=== PATIENT | female | born 1990 | race American Indian/Alaskan Native ===

== ENCOUNTER 2018-07-19 22:56 | Emergency (ER) | payer OTHER ==
[2018-07-20] MEDS ORDERED: TYLENOL PO ONE (00:13)
[2018-07-20 04:50] VITALS: BP 110/61
[2018-07-20] MEDS ORDERED: IBUPROFEN PO ONE (05:05)
[2018-07-20 07:09] LABS: Bilirubin,Urine NEG (Negative); Blood,Urine NEG (Negative); Color,Urine Yellow (Yellow); Mucus,Urine FEW /HPF; Protein,Urine <15 mg/dL mg/dL (Negative); Urobilinogen,Urine < 2.0 mg/dL (<2.0)
[2018-07-20 07:26] LABS: HCG Qualitative,Urine Negative (Negative)
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
== END 2018-07-20 08:35 | disposition home or self-care (01) ==
LOC: ED 22:56
DX: S39.012A Strain of muscle, fascia and tendon of lower back, initial encounter (principal); M79.18 Myalgia, other site; V49.49XA Driver injured in collision with other motor vehicles in traffic accident, initial encounter; Y93.9 Activity, unspecified; Y92.89 Other specified places as the place of occurrence of the external cause; Y99.8 Other external cause status
CPT/HCPCS: 70450; 72125; 72131; 81001; 81025